=== PATIENT | male | born 1930 | race Caucasian/White ===

== ENCOUNTER → 2016-04-02 | Day surgery (SDC) | payer MEDICARE ==
[~2016-04-02] MED LIST: BUPIVACAINE 0.5% 30 ML VIAL ONE; CEFAZOLIN 1 GM VIAL ONE; DEXAMETHASONE 4 MG/ML VIAL IV ONE; EPHEDrine 50 MG/ML VIAL IM ONE; ESMOLOL 100 MG/10 ML VIAL IV ONE; FENTANYL 100 MCG/2 ML VIAL IV ONE; FENTANYL 100 MCG/2 ML VIAL IV PRN; HYDROmorphone 1 MG INJECTION IV PRN; KETOROLAC TROMETH 30 MG/ML VIAL IM ONE; LABETALOL 20 MG/4 ML SYRINGE IV PRN; LIDOCAINE 100 MG PFS IV ONE; MEPERIDINE 25 MG/ML TUBEX IV PRN; MIDAZOLAM 2 MG/2 ML VIAL IV ONE; ONDANSETRON HCL 4 MG ODT TAB PO PRN; ONDANSETRON HCL 4 MG/2 ML VIAL IV ONE; ONDANSETRON HCL 4 MG/2 ML VIAL IV PRN; PROMETHAZINE 25 MG/ML VIAL IV PRN; PROPOFOL 200 MG/20 ML VIAL IV ONE; hydrALAZINE 20 MG/ML VIAL IV PRN
--- NOTE | 2016-04-02 06:57 | SC.ANESPOS ---
[id number], Hemodynamically Stable, Pain Control Adequate Phase I & II Recovery Complete: Yes Apparent Anesthesia Complication: No : N - Vital Signs Blood Pressure: 148/84 Pulse: 88 Resp Rate: 18 O2 Sat: 98 Temp: 99.0 F
--- NOTE | 2016-04-02 06:58 | HIM.ANES ---
Anesthesia Evaluation & Plan Diagnoses: PHIMOSIS (04/02/16) Consented Procedure: CIRCUMCISION - Focused Review of Systems Cardiac History: Yes: Hx Hypertension, Hx Cardiac Disorders, Hx Deep Vein Thrombosis (RIGHT LEG 2010) HEENT: Yes: Hx Hearing Impairment (HEARING AIDE-BILATERAL), Cataract Removal, Hx Vision Problem (PRESCRIPTION GLASSES), Other HEENT Problems Gastrointestinal: Yes: Hx Colonoscopy (2013) No: Hx Gastroesophageal Reflux Disease, Hx Gastrointestinal Disorders Neurological/Musculoskeletal: No: Hx Neurological Disorders Psychological: No Hx Mental/Emotional Disorders Blood/Autoimmune: No: Hx AIDS, Hx Hepatitis (type) Smoking Status: Current some day smoker Other Surgical History: BLOOD CLOT REMOVED FROM RT LEG-2010 TUMORS REMOVED FROM COLON AT [facility] AT - Focused Physical Exam NPO since: 04/01/16 2200 Mallampati: Class III Thyromental Distance: Greater than 3 Neck: Full Range of Motion Dental: Removable Dental Work Cardiovascular/Chest: Normal Respiratory: Lungs clear Any problems with anesthesia, including nausea and vomiting?: No Any relatives with a history of Malignant Hyperthermia?: No Beta Anselmo given (if appropriate): N/A Does the patient have a history of Motion Sickness-: No Other: Allergies Allergy/AdvReac Type Severity Reaction Status Date / Time No Known Allergies Allergy Verified 04/02/16 06:21 Home Medications Medication Instructions Recorded Last Taken Type Furosemide [Lasix] 20 mg PO DAILY 03/23/16 04/02/16 05:00 History Trazodone HCl [Desyrel] 100 mg PO QHS 03/23/16 04/01/16 22:00 History Warfarin Sodium [Coumadin] 5 mg PO .SEE COMMENTS 03/23/16 03/27/16 History Acetaminophen [Tylenol Arthritis] 650 mg PO TID PRN 04/01/16 04/01/16 22:00 History Lisinopril 40 mg PO DAILY 04/01/16 04/02/16 05:00 History Height and Weight Patient's height 5 ft 11 in Patient's weight 160 lb Vital Signs Temperature 99.0 F 04/02/16 06:57 Pulse Rate 88 04/02/16 06:57 Respiratory Rate 18 04/02/16 06:57 Blood Pressure 148/84 04/02/16 06:57 Pulse Oxygen Saturation 98 04/02/16 06:57 - Anesthetic Plan Anesthesia Type: General ASA Class: 2 -: I have examined this patient and reviewed the medical record. The patient has been assessed prior to anesthesia. Risks and benefits of anesthesia and anesthetic technique options have been discussed and all questions answered. The patient accepts the risk and desires me to proceed with the planned anesthetic.
--- NOTE | 2016-04-02 08:33 | HIMOPRPT ---
DATE OF PROCEDURE: 04/02/16 PREOPERATIVE DIAGNOSIS: [Phimosis]. POSTOPERATIVE DIAGNOSIS: [Phimosis]. PROCEDURE PERFORMED: Circumcision. ANESTHESIA: General by LMA ANESTHESIOLOGIST: SURGEON: Catarino Sutton MD PROCEDURE IN DETAIL: The patient was brought to the operating room and placed in supine position. General anesthesia by LMA was given. Once adequate level of anesthesia obtained, the genitalia were prepped and draped in usual sterile manner. The prepuce was dilated with hemostat and the prepucial adhesions were lysed with blunt and sharp dissection. Glans was cleaned of any discharge and a circular incision was made in coronal sulcus, and the circular incision was made, just distal to the woodall glandis in the skin and a sleeve of skin was then dissected by blunt and sharp dissection. Hemostasis was checked with cautery and skin edge was sutured in the coronal sulcus using [4-0] chromic catgut. Hemostasis in the end of the procedure, was excellent and wound was cleaned and dressed with Vaseline gauze and gentle pressure dressing was applied. Penile block was then carried out with 0.5% plain Sensorcaine it was injected dorsally as well as ventral aspect. The patient was then returned to Recovery in stable and satisfactory condition. Discharge Medications:[].Oxycodon 5mg q4h PRN 25 tabs were prescribed Follow-up: The patient will be followed in the office.
[2016-04-02 12:58] VITALS: BP 148/84; PULSE 88; TEMP 99
== END ==
LOC: SDC 05:31
PROVIDERS: ATTEND Urology
PROC: 0VTTXZZ Resection of Prepuce, External Approach (ICD-10-PCS; principal; 2016-04-02 07:15)
DX: N47.1 Phimosis (principal); I10 Essential (primary) hypertension; F17.200 Nicotine dependence, unspecified, uncomplicated; Z86.718 Personal history of other venous thrombosis and embolism; Z79.899 Other long term (current) drug therapy
CPT/HCPCS: 54161; A9270; J0690; J1100; J1885; J2001; J2405; J2550; J3010; J3490; J2250